=== PATIENT | male | born 1980 | race Caucasian/White ===

== ENCOUNTER 2020-03-29 16:22 | Emergency (ER) | payer OTHER ==
[2020-03-29] MEDS ORDERED: Benzocaine 20% Topical Spray UD MUCMEM ONE (16:40)
[2020-03-29] MEDS ORDERED: Lidocaine 2% Viscous Solution 15 ML Cup PO ONE (16:40)
--- NOTE | 2020-03-29 16:47 | EDM.PDOC ---
ED HPI GENERAL MEDICAL PROBLEM - General Chief Complaint: ENT Problem Stated Complaint: LEFT SIDE OF MOUTH SWELLING, PAIN Time Seen by Provider: 03/29/20 16:23 Source of Information: Reports: Patient History Limitations: Reports: No Limitations - History of Present Illness INITIAL COMMENTS - FREE TEXT/NARRATIVE: HISTORY AND PHYSICAL: History of present illness: Patient is a 39-year-old male who presents to the emergency room with complaints of left lower dental pain and facial swelling. He states a few weeks ago he was seen by her primary care provider for this complaint and had been placed on penicillin and given some oral pain medications. He states he finished those medications about 7 to 10 days ago and had not been able to get a dental appointment up until 04/01/2020. He states he felt improved after completing the antibiotic but it slowly started to "come back". He has been using [id number] methods for pain management without relief. He does have mul tiple dental caries and poor dentition. Patient denies any fever, chills, headache, change in vision, syncope or near syncope. Denies any chest pain, back pain, shortness of breath or cough. Denies any GI or symptoms. Patient has been eating and drinking appropriately. Review of systems: As per history of present illness and below otherwise all systems reviewed and negative. Past medical history: As per history of present illness and as reviewed below otherwise noncontributory. Surgical history: As per history of present illness and as reviewed below otherwise noncontributory. Social history: See social history for further information Family history: As per history of present illness and as reviewed below otherwise noncontributory. Physical exam: General: Well developed and well nourished 39 year old female. Alert and orientated x 3. Nontoxic in appearance and in no acute distress. Vital signs are stable and have been reviewed by me. Nursing notes were reviewed. HEENT: Atraumatic, normocephalic, pupils equal and reactive bilaterally, negative for conjunctival pallor or scleral icterus, mucous membranes moist, TMs normal bilaterally, multiple dental caries/decay, dental abscess noted to tooth #19 on the left lower. No concern for Eamon's angina. His throat is clear, neck supple, nontender, trachea midline. No drooling or trismus noted. No meningeal signs. No hot potato voice noted. Lungs: Clear to auscultation bilaterally. No wheezes, rales, or rhonchi. Normal work of breathing, no accessory muscles used. Heart: S1S2, regular rate and rhythm without overt murmur, gallops, or rubs. No JVD. No peripheral edema Abdomen: Soft, nondistended, nontender. Skin: Intact, warm, dry. No lesions or rashes noted. Hematologic: No petechiae or purpra. Mucosa appropriate color and normal nail bed color and refill. Extremities: Atraumatic, moves all extremities per self without difficulty or deficits, negative for cords or calf pain. Neurovascular unremarkable. Neuro: Awake, alert, oriented. Cranial nerves II through XII unremarkable. Cerebellum unremarkable. Motor and sensory unremarkable throughout. Exam nonfocal. Psychiatric: Mood and affect are appropriate. Normal thought process. Answering questions appropriately. Notes: *This patient was seen and evaluated during the 2019 SARS-CoV-2 novel coronavirus pandemic period. Community viral transmission is ongoing at time of this encounter and the emergency department is operating under pandemic response procedures. I have talked with the patient about today's findings, in addition to providing specific details for plan of care. Reassessment at the time of disposition demonstrates that the patient is in no acute distress. The patient is stable for discharge, counseling was provided and we discussed in great detail signs and symptoms that would prompt them to return to the Emergency Department. Medication, follow up and supportive care measures were reviewed and discussed. Voices understanding and is agreeable to plan of care. Denies any further questions or concerns at this time. Diagnostics: None Therapeutics: Clindamycin, [place] Prescription: Clindamycin, [place] Impression: Dental abscess Dental carries Plan: 1. Please take the antibiotic as prescribed. 2. Tylenol and/or ibuprofen as needed for pain management. "Tooth Balls" have been given to you; apply along the gumline every 2-3 hours as needed. Do not swallow these; external use only. 3. Follow-up with a dentist for definitive care. Return to the ED as needed and as discussed. Definitive disposition and diagnosis as appropriate pending reevaluation and review of above. left bottom tooth Pain Score (Numeric/FACES): 8 - Related Data Allergies Allergy/AdvReac Type Severity Reaction Status Date / Time No Known Allergies Allergy Verified 03/29/20 16:43 ED ROS ENT - Review of Systems Review Of Systems: Comprehensive ROS is negative, except as noted in HPI. ED EXAM, ENT - Physical Exam Exam: See Below (See dictation) Course - Vital Signs Last Recorded V/S: Last Vital Signs Temp 98.5 F 03/29/20 16:40 Pulse 95 03/29/20 16:40 Resp 16 03/29/20 16:40 BP 121/79 03/29/20 16:40 Pulse Ox 95 03/29/20 16:40 - Orders/Labs/Meds Meds: Medications Discontinued Medications Generic Name Dose Route Start Last Admin Trade Name [place] PRN Reason Stop Dose Admin Hydrocodone Bitart/Acetaminophen 1 tab 03/29/20 16:48 [place] 325-5 Mg PO 03/29/20 16:49 ONETIME ONE Benzocaine 2 each 03/29/20 16:40 Hurricaine One 20% MUCMEM 03/29/20 16:41 ONETIME ONE Clindamycin HCl 600 mg 03/29/20 16:48 Cleocin PO 03/29/20 16:49 ONETIME ONE Lidocaine HCl 15 ml 03/29/20 16:40 Xylocaine 2% Viscous PO 03/29/20 16:41 ONETIME ONE Departure - Departure Time of Disposition: 16:46 Disposition: Home, Self-Care 01 Clinical Impression: Dental abscess, Dental caries - Discharge Information Instructions: Dental Abscess, Zzor-eu-Nvys Referrals: Jose Kumar MD [Primary Care Provider] - Forms: ED Department Discharge Additional Instructions: The following information is given to patients seen in the emergency department who are being discharged to home. This information is to outline your options for follow-up care. We provide all patients seen in our emergency department with a follow-up referral. The need for follow-up, as well as the timing and circumstances, are variable depending upon the specifics of your emergency department visit. If you don't have a primary care physician on staff, we will provide you with a referral. We always advise you to contact your personal physician following an emergency department visit to inform them of the circumstance of the visit and for follow-up with them and/or the need for any referrals to a consulting specialist. The emergency department will also refer you to a specialist when appropriate. This referral assures that you have the opportunity for follow-up care with a specialist. All of these measure are taken in an effort to provide you with optimal care, which includes your follow-up. Under all circumstances we always encourage you to contact your private physician who remains a resource for coordinating your care. When calling for follow-up care, please make the office aware that this follow-up is from your recent emergency room visit. If for any reason you are refused follow-up, please contact the [facility] Emergency Department at and asked to speak to the emergency department charge nurse. [facility] [address] [place] [id number] [facility] [address] [place] [id number] Thank you for choosing the [facility] emergency department in [place] for your medical needs today. It was a pleasure caring for you. Today you were seen in the emergency department for dental abscess. 1. Please take the antibiotic as prescribed. 2. Tylenol and/or ibuprofen as needed for pain management. "Tooth Balls" have been given to you; apply along the gumline every 2-3 hours as needed. Do not swallow these; external use only. 3. Follow-up with a dentist for definitive care. Return to the ED as needed and as discussed. Sepsis Event Note (ED) - Evaluation Sepsis Screening Result: No Definite Risk - Focused Exam Vital Signs: Vital Signs Temp Pulse Resp BP Pulse Ox 03/29/20 16:40 98.5 F 95 16 121/79 95
[2020-03-29] MEDS ORDERED: Acetaminophen/HYDROcodone 325-5 MG Tab PO ONE (16:48)
[2020-03-29] MEDS ORDERED: Clindamycin HCl 150 MG Cap PO ONE (16:48)
== END 2020-03-29 17:13 | disposition home or self-care (01) ==
LOC: MW.ED 16:22
DX: K04.7 Periapical abscess without sinus (principal); K02.9 Dental caries, unspecified
CPT/HCPCS: 99282; A9270; 99283

== ENCOUNTER 2020-04-08 09:47 | Day surgery (SDC) | payer OTHER ==
[~2020-04-08 09:47] MED LIST: Acetaminophen 1,000 MG in Premix Bag 1 BAG IV ONE; Bupivacaine 0.5% 10 ML SDV ONE; Bupivacaine 25%/EPINEPHrine/PF 30 ML ONE; Lactated Ringers 1,000 ML IV SCH; Lidocaine 2% Jelly 30 ML Tube ONE; Pregabalin 75 MG Cap PO SCH
[2020-04-08] MEDS ORDERED: Ondansetron 4 MG/2 ML SDV ONE (10:09)
[2020-04-08] MEDS ORDERED: Midazolam 1 MG/ML 2 ML SDV ONE (10:10)
[2020-04-08] MEDS ORDERED: Propofol 200 MG/20 ML SDV ONE (10:10)
[2020-04-08] MEDS ORDERED: Dexamethasone 4 MG/ML 5 ML MDV ONE (10:10)
[2020-04-08] MEDS ORDERED: fentaNYL 100 MCG/2 ML SDV ONE (10:10)
[2020-04-08] MEDS ORDERED: Ketorolac 30 MG/ML SDV ONE (10:10)
--- NOTE | 2020-04-08 10:13 | PCM.PREANE ---
Preanesthetic Assessment - Anesthesia/Transfusion/Family Hx Anesthesia History: Prior Anesthesia Without Reaction Family History of Anesthesia Reaction: No Transfusion History: No Prior Transfusion(s) - Review of Systems General: No Symptoms Pulmonary: No Symptoms Cardiovascular: No Symptoms Gastrointestinal: No Symptoms Neurological: No Symptoms Other: Reports: None - Physical Assessment NPO Status Date: 04/07/20 Height: 5 ft 9 in Weight: 68.946 kg ASA Class: 2 Mental Status: Alert & Oriented x3 Airway Class: Mallampati = 3 Dentition: Reports: Normal Dentition ROM/Head Extension: Full Lungs: Clear to Auscultation, Normal Respiratory Effort Cardiovascular: Regular Rate, Regular Rhythm - Lab Values: Laboratory Last Values SARS-CoV-2 RNA (SHON) NEGATIVE (NEGATIVE) 04/08/20 08:35 - Allergies Allergies/Adverse Reactions: Allergies Allergy/AdvReac Type Severity Reaction Status Date / Time No Known Allergies Allergy Verified 04/07/20 11:47 - Blood Blood Available: No - Anesthesia Plan Pre-Op Medication Ordered: None - Acknowledgements Anesthesia Type Planned: Spinal Pt an Appropriate Candidate for the Planned Anesthesia: Yes Alternatives and Risks of Anesthesia Discussed w Pt/Guardian: Yes Pt/Guardian Understands and Agrees with Anesthesia Plan: Yes Additional Comments: pmh: asthma inactive, migraine 1/ mo, smoker PLAN: saddle block with sedation PreAnesthesia Questionnaire HEENT History: Reports: None Cardiovascular History: Reports: None Respiratory History: Reports: Other (See Below) Other Respiratory History: asthma as a child Gastrointestinal History: Reports: Hemorrhoids, Pancreatitis, Other (See Below) Other Gastrointestinal History: hx of alcoholic hepatitis Genitourinary History: Other Genitourinary History: low testosterone Musculoskeletal History: Reports: Back Pain, Chronic, Fracture Other Musculoskeletal History: hx fx ribs, ankle, finger & nose Neurological History: Reports: Migraines Psychiatric History: Reports: Addiction, Anxiety, PTSD Endocrine/Metabolic History: Reports: None Hematologic History: Reports: None Immunologic History: Reports: None Oncologic (Cancer) History: Reports: Basal Cell Carcinoma Dermatologic History: Reports: None - Past Surgical History Head Surgeries/Procedures: Reports: None HEENT Surgical History: Reports: None Cardiovascular Surgical History: Reports: None Respiratory Surgical History: Reports: None GI Surgical History: Reports: None Male Surgical History: Reports: Vasectomy Endocrine Surgical History: Reports: None Neurological Surgical History: Reports: None Musculoskeletal Surgical History: Reports: Arthroscopic Knee Other Musculoskeletal Surgeries/Procedures:: knee surgery x2 Oncologic Surgical History: Reports: None Dermatological Surgical History: Reports: Skin Biopsy - SUBSTANCE USE Tobacco Use Status *Q: Current Every Day Tobacco User Tobacco Use Within Last Twelve Months: Cigars, Other (See Below) Recreational Drug Type: Reports: Marijuana/Hashish - HOME MEDS Home Medications: Home Meds Cholecalciferol (Vitamin D3) [Vitamin D3] 2,000 units PO DAILY 04/07/20 [History] Melatonin 10 mg PO BEDTIME 04/07/20 [History] Meloxicam 15 mg PO DAILY 04/07/20 [History] QUEtiapine [SEROquel] 200 mg PO DAILY 04/07/20 [History] Testosterone Cypionate [Depo-Testosterone] 0.3 ml IM WEEKLY 04/07/20 [History] Vitamin B Complex 1 tab PO DAILY 04/07/20 [History] buPROPion HCL [Wellbutrin SR] 150 mg PO DAILY 04/07/20 [History] - CURRENT (IN HOUSE) MEDS Current Meds: Current Medications Lactated Ringer's (Ringers, Lactated) 1,000 mls @ 125 mls/hr IV ASDIRECTED MERLY Pregabalin (Lyrica) 150 mg PO ONETIME MERLY Discontinued Medications Bupivacaine HCl (Sensorcaine-Mpf 0.5%) Confirm Administered Dose 10 ml .ROUTE .STK-MED ONE Stop: 04/08/20 09:04 Acetaminophen 1,000 mg/ Premix 100 mls @ 400 mls/hr IV NOW ONE Stop: 04/07/20 12:42 Bupivacaine HCl/Epinephrine Bitart (Sensorc Mpf 0.25%-Epi 1:[id number]) Confirm Administered Dose 30 mls @ as directed .ROUTE .STK-MED ONE Stop: 04/08/20 09:05 Lidocaine HCl (Xylocaine 2% Jelly) Confirm Administered Dose 60 ml .ROUTE .STK- MED ONE Stop: 04/08/20 09:10
--- NOTE | 2020-04-08 11:42 | PCM.OPNOTE ---
- General Post-Op/Procedure Note Date of Surgery/Procedure: 04/08/20 Operative Procedure(s): excision of external hemorrhoid Findings: thrombosed external hemorrhoid on left side. Dictation Number [id number] Pre Op Diagnosis: Thrombosed external hemorrhoid, left Post-Op Diagnosis: Thrombosed external hemorrhoid, left Anesthesia Technique: Spinal Primary Surgeon: Dhruv Hunter Pathology: hemorrhoid EBL in mLs: 5 Complications: None Condition: Good
--- NOTE | 2020-04-08 13:00 | PCM.POSTAN ---
POST ANESTHESIA ASSESSMENT - MENTAL STATUS Mental Status: Alert, Oriented - VITAL SIGNS Vital Signs: Last Vital Signs Temp 681.8 F H 04/08/20 12:07 Pulse 74 04/08/20 12:25 Resp 16 04/08/20 12:25 BP 107/70 04/08/20 12:25 Pulse Ox 98 04/08/20 12:25 - RESPIRATORY Respiratory Status: Respiratory Rate WNL, Airway Patent, O2 Saturation Stable - CARDIOVASCULAR CV Status: Pulse Rate WNL, Blood Pressure Stable - GASTROINTESTINAL GI Status: No Symptoms - POST OP HYDRATION Hydration Status: Adequate & Stable
--- NOTE | 2020-04-08 13:53 | PCM48HPAN ---
Post Anesthesia Note - EVALUATION WITHIN 48HRS OF ANESTHETIC Vital Signs in Normal Range: Yes Patient Participated in Evaluation: Yes Respiratory Function Stable: Yes Airway Patent: Yes Cardiovascular Function Stable: Yes Hydration Status Stable: Yes Pain Control Satisfactory: Yes Nausea and Vomiting Control Satisfactory: Yes Vital Signs: Last Vital Signs Temp 361 C H 04/08/20 12:07 Pulse 79 04/08/20 13:00 Resp 16 04/08/20 13:00 BP 133/75 04/08/20 13:00 Pulse Ox 98 04/08/20 13:00
--- NOTE | 2020-04-08 15:25 | OR ---
SURGEON: EDNA NOLAN MD DATE OF PROCEDURE: 04/08/2020 PREOPERATIVE DIAGNOSIS: Thrombosed external hemorrhoid on left side. POSTOPERATIVE DIAGNOSIS: Thrombosed external hemorrhoid on left side. PROCEDURE PERFORMED: Excision of external hemorrhoid. ANESTHESIA: Spinal and MAC. PRIMARY SURGEON: Edna Nolan MD PATHOLOGY: External hemorrhoid. BLOOD LOSS: 5 mL. REASON FOR PROCEDURE: The patient is a pleasant 39-year-old gentleman who has had hemorrhoids for 10 days, but have been then now much bigger and severe pain for the past 3 to 4 days. He was evaluated in the clinic and was found to have a thrombosed external hemorrhoid. I did go over with the patient again risks, goals, and alternatives of surgery which include, but not limited to, bleeding, infection, injury to underlying structures, may lead to incontinence of stool or flatus, and recurrence of the hemorrhoid. Also went over that we would do another exam under anesthesia and see if there are any internal hemorrhoids that need to be dealt with, although yesterday on exam, his internal hemorrhoids were not very prominent. PROCEDURE IN DETAIL: The patient was brought back to the OR. He was given a spinal by Anesthesia team. He was then prepped and draped in usual sterile fashion in a prone tariq- knife position. Anesthesia was provided by the Anesthesia team. I did have SCDs. Time-out was performed. Exam under anesthesia was done. Again, on the left side, the patient had external thrombosed hemorrhoid. On exam, did not really appear to go really internally very much to have an ulceration on top of the blood clot that had almost worked its way through. I did do an anal block with local. Now, the thrombosed hemorrhoid was gently elevated and then excised using Harmonic scalpel up and avoid any underlying structures. There was a good hemostasis. Hemorrhoids sent to pathology. The rectum was again examined, appeared to have good resolution of the hemorrhoid. Currently, no real internal hemorrhoids to be treated. Rest of some more local was injected and lidocaine ointment was placed over the operative site. The patient was transferred to recovery room in stable condition and sponge and needle counts were correct. LISA / JADYN /[id number]
== END 2020-04-08 13:45 | disposition home or self-care (01) ==
LOC: MW.SDS 09:47
PROVIDERS: ATTEND Surgery
DX: K64.5 Perianal venous thrombosis (principal); J45.909 Unspecified asthma, uncomplicated; G43.909 Migraine, unspecified, not intractable, without status migrainosus; F17.210 Nicotine dependence, cigarettes, uncomplicated; K21.9 Gastro-esophageal reflux disease without esophagitis; Z01.812 Encounter for preprocedural laboratory examination; Z20.822 Contact with and (suspected) exposure to COVID-19; Z79.899 Other long term (current) drug therapy; Z98.890 Other specified postprocedural states
CPT/HCPCS: 46320; 87635; 88304; A9270; J0131; J1100; J1885; J2250; J2405; J2704; J3010; J7120; 00902; J2001; J3490; U0002